=== PATIENT | male | born 1990 | race Caucasian/White ===

== ENCOUNTER 2024-08-27 07:44 | Outpatient (CLI) | payer BC, SELFPAY ==
--- OUTSIDE RECORDS SUMMARY | 2024-08-27 07:48 | XMS_ITS | Clinical Summary ---
Author Organization [place] Address [address] [place] [address] Care Team Providers Care Gi Technician Name Role Phone No Ref-Primary, Physician Primary Care Provider Allergies Active Allergy Reactions Criticality Noted Date Comments Sulfa Antibiotics 10/17/1989 Rash Medications oxyCODONE-aceta minophen (PERCOCET) 5-325 MG per tablet Take 1 tablet by mouth every 4 hours as needed for pain 12 tablet 8 Active methylPREDNISol one (MEDROL DOSEPAK) 4 MG tablet Follow package instructions 21 tablet 8 Active Active Problems Problem Noted Date Diagnosed Date Closed fracture of shaft of radius with ulna Encounters Date Type Department Care Team Description 06/08/2024 Telephone [facility] [place] [address] [facility] [facility] [address] [place] [address] Ely Swift, GC Results (Carrier screening results) from Last 3 Months Immunizations Name Administration Dates Next Due DTAP (<7y) 06/02/1994 HIB (PRP-T) 05/22/1990 HepB 05/31/2001 Historical DTP/aP 05/22/1990,06/14/1989,03/02/19 89,1988 MMR 02/24/1990 [place] Tuberculin Skin Test 06/09/1992 OPV, trivalent, live 06/02/1994,05/22/19 90,06/14/1989,03/02/1989, Family History Medical History Relation Comments Eye Disorder No family hx of NOT AWARE OF ANY FAMILY HX OF EYE DISEASE Social History Tobacco Use Types Packs/Day Years Used Date Smoking Tobacco: Never Comments:no 2nd hand smoke a t home Alcohol Use Standard Drinks/Week Comments Not Asked 0 (1 standard drink = 0.6 oz pur e alcohol) Sex and Gender Information Value Date Recorded Sex Assigned at Not on file 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 Gender Identity Not on file Sexual Orientation Not on file Last Filed Vital Signs Vital Sign Reading Time Taken Comments Blood Pressure 154/95 08/14/2018 1:45 AM CDT Pulse 108 08/14/2018 1:02 AM CDT Temperature 37.1 ??C (98.8 ??F) 08/14/2018 1:02 AM CD T Respiratory Rate 16 08/14/2018 1:02 AM CDT Oxygen Saturation 97% 08/14/2018 1:48 AM CDT Inhaled Oxygen Concentration - - Weight 95.3 kg (210 lb) 08/14/2018 1:02 AM CDT Height 163.8 cm (5' 4.5) 05/31/2001 1:50 PM CDT Body Mass Index - - Plan of Treatment Health Maintenance Due Date Last Done Comments ADVANCE CARE PLANNING 1990 ANNUAL REVIEW OF HM ORDERS 1990 GLUCOSE 1990 HEPATITIS B IMMUNIZATION (2 of 3 - 3-dose series) 06/28/2001 05/31/2001, 05/31/2001 YEARLY PREVENTIVE VISIT 05/31/2002 05/31/2001 HIV SCREENING 2003 HEPATITIS C SCREENING 2006 PHQ-2 (once per calendar year) 2023 COVID-19 Vaccine (2023- season) 2024 10/21/2021, 01/09/2021, 12/11/2020 INFLUENZA VACCINE (#1) 2024 , 10/02/2015, 09/19/2014 DTAP/TDAP/TD IMMUNIZATION (8 - Td or Tdap) 05/24/2032 05/24/2022, 09/15/2012, 06/02/1994, Additional history exists RSV VACCINE (1 - 1-dose 75+ series) 2063 HPV IMMUNIZATION Aged Out No longer e ligible based on patient's age to complete this topic MENINGITIS IMMUNIZATION Aged Out No l onger eligible based on patient's age to complete this topic Pneumococcal Vaccine: Pediatrics (0 to 5 Years) and At-Risk Patients (6 to 64 Years) Aged Out No longer eligible based on patient's age to complete this topic RSV MONOCLONAL ANTIBODY Aged Out No l onger eligible based on patient's age to complete this topic Insurance BC OUT OF STATE BC OUT OF STATE Care Teams Gi Technician Relationship Specialty Start Date End Date No Ref-Primary, Physician PCP - General 08/14/18
--- OUTSIDE RECORDS SUMMARY | 2024-08-27 07:48 | XMS_ITS | Referral Summary ---
Author Organization [place] Address [address] [place] [address] Care Team Providers Care Senior Account Director Name Role Phone No Ref-Primary, Physician Primary Care Provider Encounters Date Type Department Care Team Description 06/08/2024 Telephone [facility] [place] [address] [facility] [address] [place] [address] Ely Swift, GC Results (Carrier screening results) from Last 3 Months Allergies Active Allergy Reactions Criticality Noted Date [...] fracture of shaft of radius with ulna Immunizations Name Administration Dates Next Due DTAP (<7y) 06/02/1994 HIB (PRP-T) 05/22/1990 HepB 05/31/2001 Historical DTP/aP 05/22/1990,06/14/1989,03/02/19 89,1988 MMR 02/24/1990 [place]oux Tuberculin Skin Test 06/09/1992 OPV, trivalent, live 06/02/1994,05/22/19 90,06/14/1989,03/02/1989, Social History Tobacco Use Types Packs/Day Years Used Date Smoking Tobacco: Never Comments:no 2nd hand smoke a t home Alcohol Use Standard Drinks/Week Comments Not Asked 0 (1 standard drink = 0.6 oz pur e alcohol) Sex and Gender Information Value Date Recorded Sex Assigned at Not on file 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
--- OUTSIDE RECORDS SUMMARY | 2024-08-27 07:48 | XMS_ITS | Encounter Summary ---
Author Organization [place] Address [facility] [place] [address] Care Team Providers Care Manager Card Name Role Phone No Ref-Primary, Physician Primary Care Provider Reason for Visit * Reason Onset Date Comments Results 06/08/2024 Carrier screenin g results Encounter Details Date Type Department Care Team (Late Contact Info) Description 06/08/2024 Telephone [facility] [place] [address] [facility] [address] [place] [address] Ely Swift GC [address] [place] [address] Results (Carrier screening results) Social History Tobacco Use Types Packs/Day Years Used Date Smoking Tobacco: Never Comments:no 2nd hand smoke a t home Alcohol Use Standard Drinks/Week Comments Not Asked 0 (1 standard drink = 0.6 oz pur e alcohol) Sex and Gender Information Value Date Recorded Sex Assigned at Not on file 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 She did not answer, so I left a voicemail. The couple was not found to be carriers for any of the same conditions. They are not expected to have symptoms of the conditions they carry outside of increased risk for lung disease for smokers as a carrier for mdeic-[id number] deficiency. They were encouraged to shareresults with family members for their own consideration of carrier screening. 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 Alpha-1 antitrypsin deficiency (SERPINA1: c.863A>T (p.E288V) [S allele]): This condition impacts a protein produced in the liver that protects the lungs from damage. It is ahighly variable condition and symptoms can present anytime from infancy through adulthood. Severely affected individuals typically develop lung disease between the ages of 20 and 50. Affected individuals can also develop severe liver disease, which can also increase the risk for liver cancer. Generally speaking, carriers should not have symptoms of the condition, though they may have a slightly increased risk for lung or liver disease, which can be more severe with exposures (such as heavy drinking or smoking). Both partners were identified to be carriers of the S allele which does not cause clinical disease when homozygous as the SS genotype Hereditary hemochromatosis 1 (HFE: c.845G>A (p.C282Y)): This condition causes the body to absorb too much iron from the diet which can lead to tissue and organ damage. Early symptoms are nonspecific and can include join pain, abdominal pain, and fatigue. Later symptoms include arthritis, skin discoloration, liver disease, diabetes, and heart disease. Prognosis depends on extent of organ damage and various lifestyle factors such as amount of iron in the diet and alcohol use. This is a low penetrance variant and some individuals with this variant and another pathogenic variant have no signs or symptoms of the condition. Since Alma was NOT identified to be a carrier of this condition, the residual reproductive risk is 1 in 1200. Results are available for review in chart. Ely Swift MS, [facility] Licensed Genetic Counselor [facility] Pager: [phone] Office: [phone] documented in this encounter Plan of Treatment Not on file documented as of this encounter Visit Diagnoses Not on filedocumented in this encounter Care Teams Manager Card Relationship Specialty Start Date End Date No Ref-Primary, Physician PCP - General 08/14/18 documented as of this encounter
--- OUTSIDE RECORDS SUMMARY | 2024-08-27 07:48 | XMS_ITS | Encounter Summary ---
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
--- OUTSIDE RECORDS SUMMARY | 2024-08-27 07:48 | XMS_ITS | Clinical Summary ---
Author Organization [facility] Address [place], [place] [address] Care Team Providers Care Lending Activities Supervisor Name Role Phone Pcp, No Primary Care Provider Unavailabl e Allergies No known active allergies Medications Medication Sig Dispensed Refills Start Date End Date Status terbinafine 1% cream (LAMISIL) 1 % creamIndications:Erma a cruris Apply topically to affected area(s) 2 times daily. 30 g 3 03/26/2016 Active Active Problems No known active problems Immunizations Name Administration Dates Next Due Influenza, High-dose Inactivated 09/19/2014 Influenza, IIV4 10/02/2015 Tdap 09/15/2012 Family History Medical History Relation Name Comments Hypertension Brother 3 in 20's Hypertension Father Cancer-breast Mother Double mastect larissa. no chemo Relation Name Status Comments Brother 1 Alive Brother 2 Alive Brother 3 Father Alive Mother Alive Sister Alive Social History Tobacco Use Types Packs/Day Years Used Date Smoking Tobacco: Never Smokeless Tobacco: Never Tobacco Cessation:Counseling Given: Yes Alcohol Use Standard Drinks/Week Comments Yes 0 (1 standard drink = 0.6 oz pure alcohol) socially (1 time a week, 2-3 drinks in a sitting) Sex and Gender Information Value Date Recorded Sex Assigned at Not on file Gender Identity Not on file Sexual Orientation Not on file Obstetrics History Last Filed Vital Signs Vital Sign Reading Time Taken Comments Blood Pressure 133/87 05/19/2022 8:43 AM CDT Pulse 63 05/19/2022 8:43 AM CDT Temperature 36.9 ??C (98.5 ??F) 03/26/2016 8:36 AM CD T Respiratory Rate 14 09/19/2014 8:17 AM COPY COORDINATOR Oxygen Saturation 98% 05/19/2022 8:43 AM CDT Inhaled Oxygen Concentration - - Weight 88.1 kg (194 lb 3.2 oz) 05/19/2022 8:43 A M CDT Height 190.5 cm (6' 3) 05/19/2022 8:43 AM CDT Body Mass Index 24.27 05/19/2022 8:43 AM CDT Plan of Treatment Health Maintenance Due Date Last Done Comments HIV for age 15-65 2003 Hepatitis C screening for age 18-79 2006 Depression screening for age 12+ 03/26/2017 03/26/2016 Tetanus booster 09/15/2022 09/15/2012 BMI (ht and wt on same day) for age 18+ 05/19/2023 05/19/2022, 03/26/2016 Lipids for age 35-44 2023 10/02/2015, 09/19/2014, 07/20/2013, Additional history exists COVID-19 vaccine series ( season) 2024 10/21/2021, 01/09/2021, 12/11/2020 Influenza for age 9-49 06/17/2024 10/02/2015 Tdap Completed 09/15/2012 Pneumococcal series for age 6-64 Aged Out No longer eligible based on patient's age to complete this topic Procedures Procedure Name Priority Date/Time Associated Diagnosis Comments LIPID PANEL W REFLEX MEASURED LDL Routine 10/02/2015 8:29 AM COPY COORDINATOR Blood tests for routine general physical examination from Last 3 Months or Most Recently Relevant to Health Maintenance Results * LIPID PANEL W REFLEX MEASURED LDL (10/02/2015 8:29 AM COPY COORDINATOR) CHOLESTEROL,TOTAL 186 100 - 199 mg/dL 10/02/2015 9:00 AM COPY COORDINATOR [facility] TRIGLYCERIDES 78 <150 mg/dL 10/02/2015 9:00 AM COPY COORDINATOR [facility] HDL CHOLESTEROL 51 >40 mg/dL 10/02/2015 9:00 AM COPY COORDINATOR [facility] NON-HDL CHOLESTEROL 135 <145 mg/dl 10/02/2015 9:00 AM COPY COORDINATOR [facility] CHOL/HDL RATIO 3.65 <4.50 10/02/2015 9:00 AM COPY COORDINATOR [facility] LDL CHOLESTEROL 119 <=130 mg/dL 10/02/2015 9:00 AM COPY COORDINATOR [facility] PATIENT STATUS FASTING 10/02/2015 9:00 AM COPY COORDINATOR [facility] Blood specimen (specimen) BLOOD SPECIMEN / Unknown Venipuncture / Unknown 10/02/2015 8:29 AM COPY COORDINATOR 10/02/2015 8:30 AM COPY COORDINATOR Nagi Castaneda DO CHEMISTRY [facility] [address] [place] [address], from Last 3 Months or Most Recently Relevant to Health Maintenance Care Teams Lending Activities Supervisor Relationship Specialty Start Date End Date Pcp, No . PCP - General 07/17/13
--- OUTSIDE RECORDS SUMMARY | 2024-08-27 07:48 | XMS_ITS | Encounter Summary ---
Author Organization [place] Address [address] [place] [address] Care Team Providers Care Technical Recruiter Name Role Phone No Ref-Primary, Physician Primary Care Provider Encounter Details Date Type Department Care Team (Late st Contact Info) Description 05/23/2024 12:55 PM CDT [facility] [address] [place] [phone] Encounter of male for testing for genetic disease carrier status for procreative management Social History Tobacco Use Types Packs/Day Years Used Date Smoking Tobacco: Never Comments:no 2nd hand smoke a t home Alcohol Use Standard Drinks/Week Comments Not Asked 0 (1 standard drink = 0.6 oz pur e alcohol) Sex and Gender Information Value Date Recorded Sex Assigned at Not on file 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 Gender Identity Not on file Sexual Orientation Not on file documented as of this encounter Plan of Treatment Not on file documented as of this encounter Procedures Procedure Name Priority Date/Time Associated Diagnosis Comments LABORATORY MISCELLANEOUS ORDER Routine 05/23/2024 1:05 PM CDT Encounter of male for testing for genetic disease carrier status for procreative management documented in this encounter Results * (ABNORMAL) Other Laboratory; [facility]; [facility] carrier screening (Laboratory Miscellaneous Order) (05/23/2024 1:05 PM CDT) See Scanned Result LABORATORY MISCELLANEOUS ORDER-Scanned(A) 06/06/2024 9:24 AM CDT MISCELLANEOUS TESTING Blood STRUCTURE OF RIGHT UPPER LIMB / Unknown Venipuncture / Unknown 05/23/2024 1:05 PM CDT 05/23/2024 1:05 PM CDT Ely Swift GC LAB - BLOOD ORDERABLES Final Result MISCELLANEOUS TESTING documented in this encounter Visit Diagnoses Diagnosis Encounter of male for testing for genetic disease carrier status for procreative management Testing of male for genetic disease carrier status documented in this encounter Care Teams Technical Recruiter Relationship Specialty Start Date End Date No Ref-Primary, Physician PCP - General 08/14/18 documented as of this encounter
--- OUTSIDE RECORDS SUMMARY | 2024-08-27 07:48 | XMS_ITS | Encounter Summary ---
Author Organization [place] Address [facility] [place] [address] Care Team Providers Care Barrel Driller Name Role Phone No Ref-Primary, Physician Primary Care Provider Encounter Details Date Type Department Care Team (Late st Contact Info) Description 05/23/[address] 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 for genetic consultation. The option to pursue carrier screening was discussed today. Impression/Plan: 1. Attila and his partner, Alma elected to pursue expanded carrier screening for 613 conditions through [facility]. Results are expected within 2-3 weeks, and will be available in EPIC. We will contact the couple to discuss the results. The couple requested that we contact Alma with results once both are available. She provided verbal permission for results to be left in her vo icemail. Authorization to share protected health information was signed today's visit. Carrier Screening: Expanded carrier screening for mutations in a large panel of genes associated with autosomal recessive conditions including cystic fibrosis, spinal muscular atrophy, and others, is now available. We discussed that expanded carrier screening is designed to identify carrier status for conditions that are primarily childhood or adolescent onset. Expanded carrier screening does not evaluate for adult-onset conditions such as hereditary cancer syndromes, dementia/ Alzheimer's disease, or cardiovascular disease risk factors. Additionally, expanded carrier screening is not comprehensive for all known genetic diseases or inherited conditions. This is a screening test, and residual carrier status risk figures will be provided to the patient after results become available. Carrier screening is not meant to diagnose the patient with a condition, and generally carriers are asymptomatic. However, certain genes may confer increased risks for various health concerns in carriers (DMD, FMR1, etc).Patients are encouraged to share results with their primary care providers to ensure appropriate screening. If we are notified by the performing laboratory of a variant reclassification, the patient will be contacted. We reviewed that there is a law in place, the Genetic Information Nondiscrimination Act (OZ), that protects patients from discrimination by health insurance companies and employers based on their genetic information. OZ does not protect against discrimination by life insurance companies or disability insurance. We reviewed availability of expanded carrier screening through [facility] and [facility] and different panel sizes. The [employer] 267 panel was declined as the couple desired the largest available panel. If an individual is a carrier, family members could be as well. The patient is encouraged to share positive results with siblings and other family members of reproductive age. Additionally, even if there is not a high reproductive risk for a condition, it is possible that carrier status can be passed on to future generations. [facility] is not responsible for this billing, it is handled entirely by the performing lab. The patient has the responsibility of continuing with insurance billing or the option of changing to self pay. Many plans cover genetic testing but that does not mean free. Covered benefits go towards a deductible or out of pocket maximum (if a plan has these). If the patient decides the better financial option is to do self pay instead, it is their responsibility to communicate this to the performing lab. Genetic counselors have limited availability to change or help with this process. [employer] billing can also be reached at . This phone number was provided to the patient. We reviewed the benefits and limitations of this testing. Screening tests provide a risk assessmentspecific to the for certain chromosome abnormalities, but cannot definitively diagnose or exclude a chromosome abnormality. Follow-up genetic counseling and consideration of diagnostic testing is recommended with any abnormal screening result. Diagnostic tests carry inherent risks- including risk of miscarriage- that require careful consideration. These tests can detect chromosome abnormalities with greater than 99% certainty. Results can be compromised by maternal cell contamination or mosaicism, and are limited by the resolution of cytogenetic G-banding technology. There is no screening nor diagnostic test that can detect all forms of defects or mental disability. It was a pleasure to be involved with Howard's care. Ely Swift MS, [facility] Licensed Genetic Counselor [facility] Pager: [phone] Office: [phone] documented in this encounter Plan of Treatment Not on file documented as of this encounter Results * (ABNORMAL) Other Laboratory; [...] for genetic disease carrier status for procreative management- Primary Testing of male for genetic disease carrier status documented in this encounter Care Teams Barrel Driller Relationship Specialty Start Date End Date No Ref-Primary, Physician PCP - General 08/14/18 documented as of this encounter
--- OUTSIDE RECORDS SUMMARY | 2024-08-27 07:48 | XMS_ITS | Encounter Summary ---
Author Organization [place] Address [address] [place] [address] Care Team Providers Care Light Adjuster Name Role Phone Frw, None Primary Care Provider Unavailabl e No Ref-Primary, Physician Primary Care Provider Reason for Visit * Reason Comments Abstract Encounter Details Date Type Department Care Team (Late st Contact Info) Description 04/21/2001 Abstract [facility] [place] Medical Records [address] [place] [phone] Ultimate Hoops Referee, S.M. 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
--- OUTSIDE RECORDS SUMMARY | 2024-08-27 07:48 | XMS_ITS | Encounter Summary ---
Author Organization [facility] Address [address] [place] [address]. [place] [address] Care Team Providers Care Fibreglass Laminator Name Role Phone No Ref-Primary, Physician Primary Care Provider Encounter Details Date Type Department Care Team (Late st Contact Info) Description 05/23/2024 Medical Correspondence [facility] [address] [place] [address] [place] [id number] Scan, Non-Provider Social History Tobacco Use Types Packs/Day Years Used Date Smoking Tobacco: Never Comments:no 2nd hand smoke a t home Alcohol Use Standard Drinks/Week Comments Not Asked 0 (1 standard drink = 0.6 oz pur e alcohol) Sex and Gender Information Value Date Recorded Sex Assigned at Not on file 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
== END 2024-08-27 07:45 | disposition home or self-care (01) ==
PROVIDERS: PCP Family Medicine; Visit Provider Family Medicine
DX: Z00.00 Encounter for general adult medical examination without abnormal findings (principal); Z13.6 Encounter for screening for cardiovascular disorders; Z13.1 Encounter for screening for diabetes mellitus
CPT/HCPCS: 80061; 82947